=== PATIENT | male | born 1995 | race Two or more races ===

== ENCOUNTER 2020-03-07 16:32 | Emergency (ER) | payer OTHER ==
[~2020-03-07] VITALS: Ht 175.3 cm; Wt 90.7 kg
== END 2020-03-07 20:14 | disposition home or self-care (01) ==
LOC: ER 16:32
DX: M94.0 Chondrocostal junction syndrome [Tietze] (principal)

== ENCOUNTER 2021-04-21 07:19 | Emergency (ER) | payer OTHER ==
[~2021-04-21] VITALS: Ht 175.3 cm; Wt 88.5 kg
[2021-04-21] MEDS ORDERED: NORFLEX100MG PO (10:57)
[2021-04-21] MEDS ORDERED: KETO10TA2 PO (10:57)
== END 2021-04-21 11:02 | disposition home or self-care (01) ==
LOC: ER 07:19
DX: S33.5XXA Sprain of ligaments of lumbar spine, initial encounter (principal); M54.5 Low back pain; X50.0XXA Overexertion from strenuous movement or load, initial encounter; Y93.89 Activity, other specified; Y92.69 Other specified industrial and construction area as the place of occurrence of the external cause; Y99.8 Other external cause status

== ENCOUNTER 2022-05-16 21:15 | Emergency (ER) | payer OTHER ==
[~2022-05-16] VITALS: Ht 175.3 cm; Wt 90.7 kg
[~2022-05-16 21:15] MED LIST: KETO10TA2 PO; NORFLEX100MG PO
== END 2022-05-16 23:49 | disposition home or self-care (01) ==
LOC: ER 21:15
DX: J02.9 Acute pharyngitis, unspecified (principal); R50.9 Fever, unspecified; R53.81 Other malaise

== ENCOUNTER 2024-01-16 14:04 | Emergency (ER) | payer OTHER ==
[~2024-01-16] VITALS: Ht 175.3 cm; Wt 94.3 kg
[2024-01-16] MEDS ORDERED: ACETAMINOPHEN 500 MG GEL..CAP PO STA (16:50)
[2024-01-16] MEDS ORDERED: DEXAMETHASONE SODIUM PHOSPHATE 4 MG/ML VIAL IM STA ×2 (16:57→18:57)
[2024-01-16 17:49] LABS: HEMOGLOBIN 14.8 g/dL (13-16.00); MEAN CELL VOLUME 87.9 fL (80.0-100.00); MEAN CORPUSCULAR HGB CONC 35.3 g/dl (32.0-36.0); PLATELET COUNT 255 K/uL (150-450); RED BLOOD COUNT 4.78 M/uL (4.00-6.00); RED CELL DISTRIBUTION WIDTH 12.2 % (11.5-14.5)
[2024-01-16 18:09] LABS: ALBUMIN 3.7 gm/dL (3.4-5.0); BILIRUBIN TOTAL 1.94 mg/dL (0.3-1.2); CREATININE SERUM 1.23 mg/dL (0.70-1.30); GFR 68.63; GLOBULINA 3.8 G/DL (2.4-3.5); POTASSIUM 3.85 mEq/L (3.5-5.1); TOTAL PROTEIN 7.5 gm/dL (6.4-8.2)
[2024-01-16] MEDS ORDERED: CEFTRIAXONE SODIUM 1,000 MG VIAL IM STA (18:58)
== END 2024-01-16 20:10 | disposition home or self-care (01) ==
LOC: ER 14:05
PROVIDERS: General Practice
DX: J03.90 Acute tonsillitis, unspecified (principal); R53.81 Other malaise; Z20.822 Contact with and (suspected) exposure to COVID-19